=== PATIENT | male | born 1985 | race Caucasian/White ===

== ENCOUNTER 2020-01-30 23:17 | Emergency (ER) | payer SELFPAY ==
[~2020-01-30] VITALS: Ht 182.9 cm; Wt 77.1 kg
[2020-01-31 00:01] VITALS: BP 119/81
--- NOTE | 2020-01-31 00:28 | NUR ---
Patient discharged to home in stable condition. Written and verbal after care instructions given. Patient verbalizes understanding of instruction.
== END 2020-01-31 00:29 | disposition home or self-care (01) ==
LOC: ER 23:21
DX: R60.0 Localized edema (principal); Z60.2 Problems related to living alone